=== PATIENT | male | born 1970 | race Caucasian/White ===

== ENCOUNTER 2018-03-20 14:10 | Emergency (ER) | payer SELFPAY ==
--- NOTE | 2018-03-20 14:26 | ED Physician Documentation ---
General Adult - HISTORIAN Historian: patient - HPI Stated Complaint: dental pain Chief Complaint: General Adult Onset: days ago Timing: still present Severity: moderate Further Comments: yes (Pt is a 47 yo male with dental pain in his L lower jaw. Pain has persisted for a week. Pt expects to see a dentist on Tuesday. No fever.) - ROS CONST: no problems EYES/ENT: other (dental pain) CVS/RESP: none GI/: none MS/SKIN/LYMPH: none - PAST HX Past History: none Allergies/Adverse Reactions: Allergies Allergy/AdvReac Type Severity Reaction Status Date / Time No Known Allergies Allergy Verified 02/03/16 22:45 Home Medications: Ambulatory Orders Medication Instructions Recorded NK 02/03/16 - SOCIAL HX Smoking History: cigarettes Alcohol Use: occasionally (Pt had 5 beers today because of dental pain) - FAMILY HX Family History: No - VITAL SIGNS Vital Signs: Vital Signs Temp Pulse Resp BP Pulse Ox 82/41 02/04/16 00:16 - REVIEWED ASSESSMENTS Nursing Assessment Reviewed: Yes Vitals Reviewed: Yes Progress - Progress Progress: Rx Penicillin VK 500 mg. Take one every 8 hours for 10 days. Follow up with dentist as soon as possible. General Adult Physical Exam - PHYSICAL EXAM GENERAL APPEARANCE: mild distress EENT: pharynx normal, other (poor dentition, tenderness, mild swelling L lower molar) NECK: normal inspection, supple RESPIRATORY: no resp distress, chest non-tender, breath sounds normal CVS: reg rate & rhythm, heart sounds normal BACK: normal inspection SKIN: warm/dry, normal color EXTREMITIES: non-tender, normal range of motion, no evidence of injury NEURO: oriented X3, motor nml, sensation nml Discharge Clincal Impression: Pain, dental Referrals: Primary Doctor,No [Primary Care Provider] - Condition: Good Disposition: HOME, SELF-CARE Decision to Admit: NO Decision Time: 15:00
[2018-03-20 14:51] VITALS: BP 123/88
== END 2018-03-20 14:40 | disposition home or self-care (01) ==
LOC: ED 14:10
DX: K08.89 Other specified disorders of teeth and supporting structures (principal)
CPT/HCPCS: 99283